=== PATIENT | female | born 1965 | race Two or more races ===

== ENCOUNTER 2022-03-23 06:17 | Day surgery (SDC) | payer OTHER ==
[~2022-03-23] VITALS: Ht 154.9 cm; Wt 63.5 kg
[~2022-03-23 06:17] MED LIST: CELEBREX50 MG PO; D3 + K2 DOTS 11 EACH PO; PROTONIX20 MG PO; ZESTRIL20 MG PO
== END 2022-03-23 12:10 | disposition home or self-care (01) ==
LOC: CIR.AMB 06:17
PROVIDERS: ATTEND Surgery Surgery of the Hand
DX: M67.843 Other specified disorders of tendon, right hand (principal); Z20.822 Contact with and (suspected) exposure to COVID-19; I10 Essential (primary) hypertension; F17.210 Nicotine dependence, cigarettes, uncomplicated; F12.90 Cannabis use, unspecified, uncomplicated